=== PATIENT | male | born 1970 | race Caucasian/White ===

== ENCOUNTER 2017-10-21 03:39 | Inpatient (IN) | payer OTHER ==
[~2017-10-21] VITALS: Ht 170.2 cm; Wt 96.6 kg
[~2017-10-21 03:39] MED LIST: ALLOPURINOL300 M1 PO; BYSTOLIC5 M1 PO; CIPRO250 M1 PO; FLAGYL250 M1 PO; NEXIUM20 M1 PO
--- NOTE | 2017-10-21 17:40 | Admission Core Measures ---
Acute Coronary Syndrome (CM) ACS Core Measures Acute Coronary Syndrome Diagnosis No Congestive Heart Failure (NEW) CHF Core Measures Congestive Heart Failure Diagnosis No Cerebrovascular Accident CVA Core Measures CVA/TIA Diagnosis No Venous Thromboembolism VTE Core Demond (View Protocol) VTE Risk Factors Surgery No Mechanical VTE Prophylaxis d/t N/A MechProphylax Ordered No VTE Pharm Prophylaxis d/t NA PharmProphylax ordered Problem List As ranked by this Provider includes Assessment & Plan 1. Diverticulitis of colon with perforation HOME MEDS Home Med List Allopurinol 300 MG TABLET 1 TAB PO DAILY GOUT (Reported) Ciprofloxacin HCl (Cipro) 250 MG TABLET 1 TAB PO BID DIVERTICULITIS (Reported ) Esomeprazole Magnesium (Nexium) 20 MG CAPSULE.DR 1 CAP PO DAILY GERD ( Reported) Metronidazole (Flagyl) 250 MG TABLET 1 TAB PO TID DIVERTICULITIS (Reported) Nebivolol HCl (Bystolic) 5 MG TABLET 1 TAB PO BID HTN (Reported)
--- NOTE | 2017-10-21 17:59 | Patient Discharge Instructions ---
Discharge Instructions General Discharge Information You were seen/treated for: Diverticulitis with recto-sigmoid perforation You had these procedures: Robotic lower anterior resection converted to open Hu's procedure Watch for these problems: Increased pain, fever, chills, redness, swelling drainage or increased output from your colostomy Call Surgeon to remove: Albin Diet Continue normal diet: No Recommended Diet: Low Residue Activity Full Activity/No Limits: No Activity Self Limited: Yes Pounds, do NOT lift more than: 10 Other activity limits: No heavy lifting or strenous activity x 4 weeks Acute Coronary Syndrome Inclusion Criteria At DC or during hospital stay patient has or had the following: ACS DIAGNOSIS No Discharge Core Measures Meds if any: Prescribed or Continued at Discharge Meds if any: NOT Prescribed or Continued at Discharge Congestive Heart Failure Inclusion Criteria At DC or during hospital stay patient has or had the following: CHF DIAGNOSIS No Discharge Core Measures Meds if any: Prescribed or Continued at Discharge Meds if any: NOT Prescribed or Continued at Discharge Cerebrovascular accident Inclusion Criteria At DC or during hospital stay patient has or had the following: CVA/TIA Diagnosis No Discharge Core Measures Meds if any: Prescribed or Continued at Discharge Meds if any: NOT Prescribed or Continued at Discharge Venous thromboembolism Inclusion Criteria VTE Diagnosis No VTE Type NONE VTE Confirmed by (Test) NONE Discharge Core Measures - Per Current guidelines, there needs to be overlap - treatment for the first 5 days of Warfarin therapy. - If discharged on Warfarin prior to 5 days of - overlap therapy, the patient will need to be - assessed for post discharge needs including - *Post discharge parental anticoagulation - *Warfarin and/or parental anticoagulation education - *Follow up date to check INR post discharge At least 5 days overlap therapy as Inpatient No Meds if any: Prescribed or Continued at Discharge Note: Overlap Therapy is Warfarin and Anticoagulant Meds if any: NOT Prescribed or Continued at Discharge
[2017-10-21 20:25] VITALS: BP 120/70
--- NOTE | 2017-10-21 22:23 | PN- General Surgery ---
Subjective Subjective: PATIENT RESTING COMFORTABLY WITHOUT COMPLAINTS Objective Vital Signs and I&Os Vital Signs Date Time Temp Pulse Resp B/P B/P Pulse O2 O2 Flow FiO2 Mean Ox Delivery Rate 10/22 2143 Nasal 2.0L Cannula 10/21 2024 98.7 60 18 120/70 98 Nasal 2.0L Cannula 10/22 1999 Nasal 2.0L Cannula VSS AFEBRILE ABDOMEN -FLAT WITHOUT DISTENTION OSTOMY PINK CHEST -CTA, SYMMETRIC HEART -RRR WITHOUT MRG BILATERAL LOWER EXTREMTIES CALVES SOFT Assessment/Plan Assessment/Plan 47 Y/O MALE WITH Diverticulitis with recto-sigmoid perforation S/P Robotic converted to open LAR with colostomy ERAS PROTOCAL STEVENS OUT IN AM ADVANCE DIET EARLY AMBULATION HEPAIN FOR DVT PROPH Core Measures Venous Thromboembolism VTE Risk Factors Surgery No Mechanical VTE Prophylaxis d/t N/A MechProphylax Ordered No VTE Pharm Prophylaxis d/t NA PharmProphylax ordered
[2017-10-21 22:24] VITALS: BP 120/78
[2017-10-22 02:04] VITALS: BP 130/86
[2017-10-22 06:12] VITALS: BP 140/84
[2017-10-22 08:36] LABS: ABSOLUTE BASOPHIL COUNT 0 /CUMM (0.0-0.2); ABSOLUTE EOSINOPHIL COUNT 0 /CUMM (0.0-0.7); ABSOLUTE GRANULOCYTE CT 12.8 /CUMM (1.4-6.5); ABSOLUTE MONOCYTE COUNT 0.6 /CUMM (0.10-0.60); BASOPHIL % 0 % (0.0-2.0); EOSINOPHIL % 0 % (0-5); MEAN CORPUSCULAR HGB 28.5 PG (27.0-31.0); MEAN CORPUSCULAR HGB CONC 33.6 G/DL (33.0-37.0); MEAN PLATELET VOLUME 9.3 FL (7.4-10.4); RBC DISTRIBUTION WIDTH 13.9 % (11.5-14.5); RED BLOOD CELL CT 4.59 /CUMM (4.70-6.10); WHITE BLOOD CELL COUNT 14.5 /CUMM (4.8-10.8)
[2017-10-22 09:17] LABS: GRANULOCYTE % 88.8 % (42.2-75.2)
[2017-10-22 09:18] LABS: PLATELET COUNT 314 /CUMM (130-400)
--- NOTE | 2017-10-22 10:05 | PN- General Surgery ---
Surgical Brief Attending Note Brief Attending Note: Patient examined , clinical data reviewed Patient looks well s/p robotic LAR converted to open Maikol's for perforated diverticulitis Contine ERAS protocol but hold diet at clear liquids today
[2017-10-22 14:53] VITALS: BP 150/90
[2017-10-22 21:15] VITALS: BP 150/84
[2017-10-23 06:34] VITALS: BP 106/68
--- NOTE | 2017-10-23 08:58 | PN- General Surgery ---
See Addendum Subjective Subjective: feeling ok, +abd pain. no oob yet. very little po intake. no n/v. no cp/sob. no ostomy fxn Objective Vital Signs and I&Os Vital Signs Date Time Temp Pulse Resp B/P B/P Pulse O2 O2 Flow FiO2 Mean Ox Delivery Rate 10/23 0534 98.3 52 20 106/68 96 Room Air 10/22 2115 98.5 46 18 150/84 96 Room Air 10/22 1453 98.3 83 22 150/90 97 Intake & Output 10/23 1600 10/23 0800 10/23 0000 10/22 1600 10/22 0810/22 0000 Intake Total 800 500 840 700 350 Output Total 100 665 092 227 3249 25 Balance -100 135 -125 -35 -450 325 Intake, IV 600 300 600 600 150 Intake, Oral 200 200 240 100 200 Output, 15 20 75 25 Drainage Output, Stool 5 Output, Urine 100 650 [phone] Patient 223 lb 226 lb 218 lb Weight Physical Exam: gen- nad card-s1s2 rrr pulm- ctab abd- stoma pink, edematous, scant srosang in bag- no gas/stool. midline wick changed- skin edges clean, min serosang drainage. ttp at incision. +bs. distended. mary with minimal serosang ext- calves soft nt bl, alps on Results Last 48 Hours of Labs: Laboratory Tests 10/23 10/22 0612 0605 Chemistry Sodium (137 - 145 mmol/L) Pending 140 Potassium (3.5 - 5.1 mmol/L) Pending 4.4 Chloride (98 - 107 mmol/L) Pending 101 Carbon Dioxide (22 - 30 mmol/L) Pending 26 Anion Gap (5 - 16) Pending 12 BUN (9 - 20 mg/dL) Pending 10 Creatinine (0.7 - 1.2 mg/dL) Pending 1.0 Estimated GFR (>60 ml/min) > 60 BUN/Creatinine Ratio (7 - 25 %) Pending 10.0 Hematology CBC w Diff Pending NO MAN DIFF REQ WBC (4.8 - 10.8 /CUMM) Pending 14.5 H RBC (4.70 - 6.10 /CUMM) Pending 4.59 L Hgb (14.0 - 18.0 G/DL) Pending 13.1 L Hct (42 - 52 %) Pending 39.0 L MCV (80.0 - 94.0 FL) Pending 85.0 MCH (27.0 - 31.0 PG) Pending 28.5 MCHC (33.0 - 37.0 G/DL) Pending 33.6 RDW (11.5 - 14.5 %) Pending 13.9 Plt Count (130 - 400 /CUMM) Pending 314 MPV (7.4 - 10.4 FL) Pending 9.3 Gran % (42.2 - 75.2 %) 88.8 H Lymphocytes % (20.5 - 51.1 %) 7.1 L Monocytes % (1.7 - 9.3 %) 4.1 Eosinophils % (0 - 5 %) 0 Basophils % (0.0 - 2.0 %) 0 Absolute Granulocytes (1.4 - 6.5 /CUMM) 12.8 H Absolute Lymphocytes (1.2 - 3.4 /CUMM) 1.0 L Absolute Monocytes (0.10 - 0.60 /CUMM) 0.6 Absolute Eosinophils (0.0 - 0.7 /CUMM) 0 Absolute Basophils (0.0 - 0.2 /CUMM) 0 Assessment/Plan Assessment/Plan A- POD2 sp robo-open hartmanns, with limited oob and po intake, with expected postop pain. P- oob, ambulate encouraged to try clears- advance if tolerates mary to self suction hep sq, alps entereg until bowel fxn daily dressing change will dw Dr. Sanford Core Measures Venous Thromboembolism VTE Risk Factors Surgery No Mechanical VTE Prophylaxis d/t N/A MechProphylax Ordered No VTE Pharm Prophylaxis d/t NA PharmProphylax ordered
[2017-10-23 09:15] LABS: ABSOLUTE BASOPHIL COUNT 0 /CUMM (0.0-0.2); ABSOLUTE EOSINOPHIL COUNT 0.1 /CUMM (0.0-0.7); ABSOLUTE LYMPH COUNT 2.2 /CUMM (1.2-3.4); ABSOLUTE MONOCYTE COUNT 0.6 /CUMM (0.10-0.60); BASOPHIL % 0.4 % (0.0-2.0); EOSINOPHIL % 0.9 % (0-5); GRANULOCYTE % 70.5 % (42.2-75.2); HEMATOCRIT 35.1 % (42-52); MEAN CORPUSCULAR HGB 28.2 PG (27.0-31.0); MEAN CORPUSCULAR VOLUME 85.5 FL (80.0-94.0); MEAN PLATELET VOLUME 9.4 FL (7.4-10.4); PLATELET COUNT 252 /CUMM (130-400); RBC DISTRIBUTION WIDTH 14.5 % (11.5-14.5); RED BLOOD CELL CT 4.11 /CUMM (4.70-6.10); WHITE BLOOD CELL COUNT 9.9 /CUMM (4.8-10.8)
[2017-10-23 13:57] VITALS: BP 130/70
[2017-10-23 14:03] VITALS: BP 140/80
[2017-10-23 21:32] VITALS: BP 120/80
[2017-10-24 06:42] VITALS: BP 116/70
--- NOTE | 2017-10-24 07:30 | PN- Student ---
Tacos Azul 10/24/17 0727: Subjective Subjective: 3-5/10 abdominal pain when still, increases to 7/10 when moving. Tolerating clear liquids. No nausea, no vomiting. No bowel movements. Passing flatus and urinating. Ambulating around unit and using incentive spirometer. No chest pain, no shortness of breath, no calf pain. Objective Objective: Vitals: Temp Physical Exam: General: no acute distress, alert and oriented Pulm: clear to auscultation bilaterally Cardio: s1,s2, RRR Abdomen: soft, +bowel sounds, tender around incisions. serosang disharge in bag, stoma is pink. serosang discharge from drain. Extremites: calves soft bilaterally Results Results: Laboratory Tests 10/23/17 0612: Anion Gap 12, Estimated GFR > 60, BUN/Creatinine Ratio 10.0, CBC w Diff NO MAN DIFF REQ, RBC 4.11 L, MCV 85.5, MCH 28.2, MCHC 33.0, RDW 14.5, MPV 9.4, Gran % 70.5, Lymphocytes % 21.9, Monocytes % 6.3, Eosinophils % 0.9, Basophils % 0.4, Absolute Granulocytes 7.0 H, Absolute Lymphocytes 2.2, Absolute Monocytes 0.6, Absolute Eosinophils 0.1, Absolute Basophils 0 10/22/17 0605: Anion Gap 12, Estimated GFR > 60, BUN/Creatinine Ratio 10.0, CBC w Diff NO MAN DIFF REQ, RBC 4.59 L, MCV 85.0, MCH 28.5, MCHC 33.6, RDW 13.9, MPV 9.3, Gran % 88.8 H, Lymphocytes % 7.1 L, Monocytes % 4.1, Eosinophils % 0, Basophils % 0, Absolute Granulocytes 12.8 H, Absolute Lymphocytes 1.0 L, Absolute Monocytes 0.6, Absolute Eosinophils 0, Absolute Basophils 0 Microbiology 10/21 1255 URINE ROUT: Urine Culture - COMP Assessment/Plan Assessment: 47 year old male POD 3 s/robotic to open soumya. Doing well with appropriate post op pain, passing flatus and awaiting bowel movement. Plan: advance to full liquid diet Ernie Roman 10/24/17 0820: Assessment/Plan Plan: Seen and examined with PA-S. Agree with above. Patient reports trouble sleeping due to roomate, improved with melatonin and pain with ambulation. He reports tolerating clears without nausea vomiting or belching. He reports gas in his ostomy bag, denies stool. On exam afebrile, VSS, abdomen is softly distended with normoactive bs, 4 lap incsions healing well, midline packing changed with no evidence of infection or drainage, stoma pink with mucus and scant serosang drainage, no stool, mary with 15 cc serosag drainage, appropriately tender branden- incisionaly. POD 3 s/p robotic converted to open hartmanns with expected postop pain and signs of bowel return. Advance to fulls, keep mary in place, continue eras, enterg until bm. Will d/w Dr. Safnord
--- NOTE | 2017-10-24 08:19 | Operative Report ---
Operative/Inv Procedure Report Surgery Date: 10/21/17 Name of Procedure: Robotic Low anterior resection converted to open Hu's procedure (Rectosigmoid resection with end colostomy) Pre-Operative Diagnosis: Chronic diverticulitis Post-Operative Diagnosis: Chronic complicated diverticulitis Estimated Blood Loss: 300 mL's Surgeon/Scanning Coordinator: Carrillo Sanford Jr., DO Anesthesia: general endotracheal tube, block Monitors: Per routine Drains: BLU drain in pelvis Specimens: 1. Pelvic implants/pelvic tissue-frozen section 2. Rectosigmoid Complications: None Condition: Good Operative Indication: This is a 47-year-old gentleman who is otherwise healthy who has known for several months now. 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 CT imaging confirmed presence of diverticulitis without obvious evidence of consultation initial plan was to treat him with antibiotics and for routine perform colonoscopy prior to deciding on surgery. Every time we stopped antibiotics the patient would immediately flare. So the patient has been on near continuous antibiotics for the last few months. We were never able to get him to his colonoscopy. We decided to proceed with surgical resection in hopes of doing a 1 stage operation. Patient was advised and educated prior to surgery that there was a high chance of colostomy depending on the intraoperative findings. Operative/Procedure Note Note: On the day before the operation the patient did a mechanical bowel prep. Once again he had been continuously on antibiotics for the month prior to surgery. He drinks 12 ounces of the obtuse prior to coming to the hospital. When he arrived at the hospital he received the usual ERAS premedications. He was taken to the operating room. He was placed in supine position on the operating table and received IV antibiotics. He underwent induction of general anesthesia placement of Tinoco catheter and then bilateral tap blocks were performed by the anesthesia department. After the tap blocks were completed the patient was converted to lithotomy position in Gigi stirrups and then was secured to the bed with both arms tucked. We into the abdominal cavity using a Veress needle technique. Veress needle was inserted in the midclavicular line subcostal on the left. After the abdomen was insufflated to 15 mmHg the robotic ports were placed. These ports were placed on a diagonal line drawn between the xiphoid and the right lower quadrant. Ports were placed approximately 10 cm apart and the #1, # 2, and #3 ports were 8 mm ports. A #4 port was a 12 mm port and then additional 8 mm right lower quadrant aerocele system port was placed. The patient was placed in Trendelenburg and laparoscopic expiration of the abdominal cavity was performed. I immediately became concerned that the patient had a perforation as the pelvis was completely walled off by very edematous normal-appearing sigmoid colon. The colon was adherent along the anterior pelvic wall and lower abdomen. I began by trying to mobilize and take down these abnormal adhesions. This tissue was very abnormal and very edematous and bled very easily. The bleeding was starting to obscure my vision so I decided to try to find a clean plane and worked down into the pelvis. I identified the sacral promontory into the posterior avascular of the rectum by incising the peritoneum here. I was able to enter a healthy tissue plane and get down to approximately the midportion of the rectum. Next I took down the white line of Toldt's to about the mid descending colon. While taking down the white line I was able to identify the left ureter and important vascular structures. I decided to encompass as much as I could robotically so the vascular structures were identified. I skeletonized the inferior mesenteric some more distal to the takeoff of the left colic artery. The vessels were then individually ligated and divided with a robotic vessel sealer. At this point my attention returned to the pelvis. I continued to try to dissect the bowel out of the pelvis. The tissue planes were completely obliterate was obliterated. I was afraid I was going to injure other organ systems sutures the bladder or vasculature. So, at this point I decided to convert to open. I chose a proximal site of transsection. The mesentery was cleared here and a ALBERT 80 blue load stapler was used to transect the bowel. I did a top down into created dissection towards the pelvis. I was able to finish hand dissecting the sigmoid colon away from the anterior pelvic wall,. At this point it became apparent to me that the patient had undergone a major perforation. The anterior wall of the rectosigmoid had completely blown out. This distal sigmoid had become adherent to the upper portion of the anterior rectum. There was a major tissue defect at the rectosigmoid with full-thickness bowel wall missing. The pelvis had a woody type fibrosis. At this point I was concerned that this may be a perforated cancer. Biopsies were taken from the pelvic wall for frozen section. No evidence of invasive cancer were observed on frozen. As the whole mesial rectum appeared fibrotic it was not safe to dissect any further into the pelvis. I transected the bowel sharply at the level distal edge of the perforation. The specimen was removed from the field and sent for routine path. The rectal stump was then oversewn in 2 layers with running locking 2-0 Vicryl. Then with interrupted figure of 8 2-0 Vicryl. A BLU drain was placed in the pelvis and brought out through the right lower quadrant 12 mm robotic port. This BLU was secured to skin with nylon suture We copiously irrigate out the pelvis with sterile saline. I chose a site for the colostomy in the left lower quadrant. A plug of skin and soft tissue was excised down to the fascia. The fascia was divided in a cruciate fashion over the rectus muscle. The rectus muscle was bluntly split in the midline and the bowel was brought up through this fascial opening. Next a midline incision was closed in layers. The peritoneum was closed with a running 2-0 Vicryl suture. The fascia was closed with a running #1 PDS suture. The subcutaneous tissues were copiously irrigated. The skin was loosely was made with skin myrna and then a quarter inch packing was placed between the myrna. The ports were all closed subcuticular 4-0 Monocryl and then skin glue. The tumor was matured in a Annette fashion with 3-0 Vicryl suture. The abdomen was cleansed and dried and a bulky midline dressing was applied. A stoma collection device was applied. And the procedure was concluded. The end of the procedure all needle sponges and Schmidts were accounted for. Patient tolerated the procedure well without operating room and taken recovery area in good condition
--- NOTE | 2017-10-24 10:33 | Surgical Discharge Summary ---
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 Home Who Do You Live With? Spouse Services at Home: None Review of Systems: Refer to H&P Hospital Course Course Attending Physician: Carrillo Sanford Jr., DO Primary Care Physician: Inderjit Thompson MD Hospital Course: Patient [facility] for an elective robotic lower anterior resection converted to open Hu's procedure for chronic complicated diverticulitis on 10/21/[address] Sanford. ERAS protocol initiated preop and maintained postop. Diet was advanced and tolerated with ostomy function and pain was controlled with oral analgesics. At the time of discharge he was tolerating a regular diet, voiding and his pain was well controlled. Allergies: Coded Allergies: No Known Allergies (10/14/17) Significant Procedures: Robotic Low anterior resection converted to open Hu's procedure on 10/21/17 Disposition Summary Disposition Principal Diagnosis: Chronic complicated diverticulitis Additional Diagnosis: Chronic complicated diverticulitis s/p robotic lower anterior resection converted to open Hu's Discharge Instructions General Discharge Information Code Status: Full Code Patient's Diet: Regular Patient's Activity: Ambulate as desired Follow-Up Instructions/Appts: 1-[address] Sanford Medications at Discharge Discharge Medications: Stop taking the following medications: Metronidazole (Flagyl) 250 MG TABLET ORAL THREE TIMES DAILY Ciprofloxacin HCl (Cipro) 250 MG TABLET ORAL TWICE DAILY Continue taking these medications: Nebivolol HCl (Bystolic) 5 MG TABLET 1 Tablet ORAL TWICE DAILY Allopurinol (Allopurinol) 300 MG TABLET 1 Tablet ORAL DAILY Esomeprazole Magnesium (Nexium) 20 MG CAPSULE.DR 1 Capsule ORAL DAILY
--- NOTE | 2017-10-24 12:13 | PN- General Surgery ---
Surgical Brief Attending Note Brief Attending Note: Patient looks well AVSS WBC is WNL Stoma pink and viable Full liquids for today Consult Genna for stoma teaching Possible d/c home tomorrow - will need home nursing for stoma and wound care
[2017-10-24 13:55] VITALS: BP 138/78
[2017-10-24 22:16] VITALS: BP 120/84
[2017-10-25 06:58] VITALS: BP 106/70
--- NOTE | 2017-10-25 08:29 | PN- General Surgery ---
See Addendum Surgical Brief Attending Note Brief Attending Note: Pt looks well Stoma working D/c BLU drain today D/c home today on regular diet Needs home nursingfo stoma and wound care Follow up in my office next week
[2017-10-25] MEDS ORDERED: ULTRAM50 M1 PO (10:59)
[2017-10-25] MEDS ORDERED: GABAPENTIN300 M2 PO (10:59)
== END 2017-10-25 12:55 | disposition home health service (06) | DRG 330 ==
LOC: SDA 03:39 → 2NA 03:39 → ENRESERV 18:24 → ENTRNSPT 19:40 → EDTRNSPT 19:54 → EDTRNSPTSTS 19:54 → 2NA 20:00 → CMPTRNSPT 20:11 → ENPENDDIS 10-25 11:09 → 2NA 10-25 12:55
PROVIDERS: Physician Assistant; Physician Assistant Surgical
PROC: 0DBP0ZZ Excision of Rectum, Open Approach (ICD-10-PCS; principal; 2017-10-21)
PROC: 0D1N0Z4 Bypass Sigmoid Colon to Cutaneous, Open Approach (ICD-10-PCS; principal; 2017-10-21)
PROC: 8E0W4CZ Robotic Assisted Procedure of Trunk Region, Percutaneous Endoscopic Approach (ICD-10-PCS; principal; 2017-10-21)
PROC: 3E0T3BZ Introduction of Anesthetic Agent into Peripheral Nerves and Plexi, Percutaneous Approach (ICD-10-PCS; principal; 2017-10-21)
PROC: 0DTN0ZZ Resection of Sigmoid Colon, Open Approach (ICD-10-PCS; principal; 2017-10-21)
DX: K57.20 Diverticulitis of large intestine with perforation and abscess without bleeding (principal); I10 Essential (primary) hypertension; E78.5 Hyperlipidemia, unspecified; K21.9 Gastro-esophageal reflux disease without esophagitis; M1A.9XX1 Chronic gout, unspecified, with tophus (tophi); E66.9 Obesity, unspecified; Z68.34 Body mass index [BMI] 34.0-34.9, adult; Z53.31 Laparoscopic surgical procedure converted to open procedure
CPT/HCPCS: 2NASP; 36415; 36592; 82436; 87086; C9290; J0690; J1100; J1644; J2405; J3490; J7042